=== PATIENT | female | born 1970 ===

== ENCOUNTER 2018-02-06 08:22 | Outpatient (CLI) | payer OTHER | END 2018-02-06 08:25 | disposition home or self-care (01) | LOC: SONOGRAMA 08:22 | DX: E04.1 Nontoxic single thyroid nodule (principal) ==

== ENCOUNTER 2019-03-25 02:36 | Emergency (ER) | payer OTHER ==
[~2019-03-25] VITALS: Ht 152.4 cm; Wt 59.0 kg
== END 2019-03-25 05:41 | disposition home or self-care (01) ==
LOC: ER 02:36
DX: S01.01XA Laceration without foreign body of scalp, initial encounter (principal); W16.212A Fall in (into) filled bathtub causing other injury, initial encounter; Y93.89 Activity, other specified; Y92.89 Other specified places as the place of occurrence of the external cause; Y99.8 Other external cause status

== ENCOUNTER 2020-04-29 00:42 | Emergency (ER) | payer OTHER ==
[~2020-04-29] VITALS: Ht 154.9 cm; Wt 59.0 kg
== END 2020-04-29 03:29 | disposition home or self-care (01) ==
LOC: ER 00:42
DX: T40.7X4A Poisoning by cannabis (derivatives), undetermined, initial encounter (principal); I16.0 Hypertensive urgency; Y92.89 Other specified places as the place of occurrence of the external cause

== ENCOUNTER 2021-06-18 08:05 | Outpatient (CLI) | payer OTHER | END 2021-06-18 08:18 | disposition home or self-care (01) | LOC: RAD 08:05 | PROVIDERS: ATTEND Specialist | DX: Z01.811 Encounter for preprocedural respiratory examination (principal) ==